=== PATIENT | male | born 1980 | race Caucasian/White ===

== ENCOUNTER → 2024-07-25 | Outpatient (CLI) | payer OTHER ==
--- NOTE | 2024-07-25 11:34 | US ---
EXAMINATION TYPE: US venous doppler duplex LE RT; LOWER EXTREMITY VENOUS INSUFFICIENCY DATE OF EXAM: 07/25/2024 COMPARISON: NONE CLINICAL INDICATION: Male, 44 years old with history of I87.311 Chronic venous hypertension; Non heal ing wound right lower leg x 6+ months, wound care center patient, morbidly obese patient TECHNIQUE: Grayscale color Doppler and spectral Doppler imaging of the lower extremity veins. FINDINGS: SIDE PERFORMED: Right 1) Color flow is present and patency is documented in the following vessels. No DVT or SVT is noted . Femoral Vein Popliteal Vein Extremely difficult and limited due to patient body habitus EIV, GSV, CFV, deep fem vein, SSV and proximal calf veins not seen due to patient body habitus 2) There is venous reflux noted at the following venous levels: none Color Doppler imaging shows patency of the vessels. Spectral waveforms are within normal limits. IMPRESSION: Significantly limited examination due to patient's body habitus. No visualized venous insufficiency/reflux however multiple veins are not visualized as described kan paul [facility], , 07/25/2024 11:32 AM
--- NOTE | 2024-07-25 11:36 | US ---
EXAMINATION TYPE: US arterial LE single level DATE OF EXAM: 07/25/2024 9:45 AM COMPARISONS: None. CLINICAL INDICATION: Male, 44 years old with history of I87.311 CHRONIC VENOUS HYPERTENSION WITH ULCE R OF; Non healing wound right lower leg x 6+ months, wound care center patient, morbidly obese patien t TECHNIQUE: Systolic pressures were taken of the upper and lower extremity arteries with ankle-brachia l indices and toe brachial indices calculated bilaterally. History of: Smoker: Previous Hypertension: Yes Diabetic: No Hyperlipidemia: No FINDINGS: Doppler Waveforms: Right: Triphasic waveforms within the posterior tibial and dorsalis pedis arteries. Monophasic wavefo acacia within the femoral, popliteal and digit. Left: Triphasic waveforms involving the posterior tibial artery. Monophasic waveforms within the femo ral, popliteal, and digit. Biphasic waveforms within the dorsalis pedis. Brachial Artery systolic pressure: Right: 179 Left: 210 Posterior Tibial artery systolic pressure: Right: CNO Left: 194 Dorsalis Pedis artery systolic pressure: Right: CNO Left: 200 Toe artery systolic pressure: Right: 141 Left: 132 Ankle-Brachial Indices: Right: CNO Left: 0.95 Toe Brachial Indices: Right: 0.67 Left: 0.63 (Normal > 0.6; Mild 0.35 - 0.59, Moderate 0.12 - 0.34, Severe <0.12) IMPRESSION: AIDA: Right: Cannot be obtained. Normal TBI. Consider further evaluation with CTA runoff as clinically alexy cated. Left: Normal 0.9 - 1.4. Normal TBI. [facility], , 07/25/2024 11:34 AM
== END | disposition home or self-care (01) ==
LOC: RADUSWWP 09:43
PROVIDERS: ATTEND Family Medicine
DX: I87.311 Chronic venous hypertension (idiopathic) with ulcer of right lower extremity (principal)
CPT/HCPCS: 93923